=== PATIENT | male | born 1970 | race Caucasian/White ===

== ENCOUNTER 2018-12-06 16:33 | Emergency (ER) | payer SELFPAY ==
[2018-12-06 16:43] VITALS: BP 120/75; PULSE 75; TEMP 98; BMI 28.2
[2018-12-06] MEDS ORDERED: DIPHTH,PERTUSS(ACELL),TET 0.5 ML DISP.SYRIN IM ONE ×2 (17:29→18:00)
--- NOTE | 2018-12-06 18:02 | PDOC ---
History of Present Illness - General Chief Complaint: Injury Stated Complaint: LACERATION Time Seen by Provider: 12/06/18 16:44 History Source: Patient Exam Limitations: No Limitations - History of Present Illness Initial Comments: 12/06/18 18:06 HISTORY OF PRESENT ILLNESS: This is a 48-year-old male denies medical history presents emergency department for evaluation of right lower leg laceration sustained while at work today. Patient works as a day warehouse general laborer and when he walked passed some sheet-metal sustained a laceration to the lateral side of his right leg. Patient applied a dressing came to emergency department immediately. Patient is unsure of his last tetanus shot. No recent travel or sick contacts. PAST MEDICAL HISTORY: Denies past medical history SURGICAL HISTORY: Denies ALLERGIES: No known drug allergies REVIEW OF SYSTEMS General/Constitutional: Denies fever or chills. Denies weakness, weight change. HEENT: Denies change in vision. Denies ear pain or discharge. Denies sore throat. Cardiovascular: Denies chest pain or shortness of breath. Respiratory: Denies cough, wheezing, or hemoptysis. Gastrointestinal: Denies nausea, vomiting, diarrhea or constipation. Denies rectal bleeding. Genitourinary: Denies dysuria, frequency, or change in urination. Musculoskeletal: Denies joint or muscle swelling or pain. Denies neck or back pain. Skin and breasts: see HPI Neurologic: Denies headache, vertigo, loss of consciousness, or loss of sensation. Psychiatric: Denies depression or anxiety. Endocrine: Denies increased thirst. Denies abnormal weight change. Hematologic/Lymphatic: Denies anemia, easy bleeding, or history of blood clots. Allergic/Immunologic: Denies hives or skin allergy. Denies latex allergy. PHYSICAL EXAM General Appearance: Well-appearing, appropriately dressed. No apparent distress , no intoxication. Integumentary: 4cm linear superficial laceration to right lateral lower leg. Bleeding well controlled. Neurologic: mulcher operator II-XII intact. Fully oriented, alert. Appropriate mood/affect. Motor strength 5/5. No appreciable EOM palsy, facial droop or sensory deficit. Past History - Past Medical History Allergies/Adverse Reactions: Allergies Allergy/AdvReac Type Severity Reaction Status Date / Time No Known Allergies Allergy Verified 12/06/18 16:42 COPD: No - Suicide/Smoking/Psychosocial Hx Smoking History: Never smoked Information on smoking cessation initiated: No Hx Alcohol Use: No Drug/Substance Use Hx: No *Physical Exam - Vital Signs Last Vital Signs Temp Pulse Resp BP Pulse Ox 98 F 75 18 120/75 99 12/06/18 16:41 12/06/18 16:41 12/06/18 16:41 12/06/18 16:41 12/06/18 16:41 Procedures - Consent Consent obtained: Verbal, From Patient - Laceration/Wound Repair Right Lateral Calf Wound Length: 2.6 to 5.0 cm Wound Explored: clean Wound's Depth, Shape: superficial Irrigated w/ Saline: Yes Betadine Prep: Yes Anesthesia: 1% Lidocaine Amount of Anesthetic (ccs): 6 Wound Debrided: minimal Wound Repaired With: Sutures Suture Size/Type: 4:0, nylon Number of Sutures: 5 Layer Closure: No Sterile Dressing Applied: Yes Splint Applied: No Sling Applied: No Progress: 12/06/18 17:58 patient tolerated well Medical Decision Making - Medical Decision Making 12/06/18 18:09 A/P: 48-year-old male with laceration to right lateral lower leg Tetanus booster Laceration repair-see procedure note for details Discharge Portions of this note have been documented using voice recognition software. As a result, errors may occur in the director of corporate real estate process. Effort has been made to correct all grammatical and director of corporate real estate error, but some may have been missed. *DC/Admit/Observation/Transfer Diagnosis at time of Disposition: Laceration - Discharge Dispostion Disposition: HOME Condition at time of disposition: Stable Decision to Admit order: No - Referrals - Patient Instructions Additional Instructions: Keep wound clean and dry Avoid strenuous activity/exercise to create a hot or sweaty environment until sutures are removed Reapply bacitracin ointment 2 times a day until sutures are removed Return to emergency Department or private physician in 10-14 days for suture removal May use Tylenol or Motrin for pain relief Return immediately to emergency department for redness, swelling, pain, or signs of infection Mantenga la herida limpia y seca Evite la actividad/ejercicio extenuante para crear un ambiente caliente o sudoroso hasta que se retiren las suturas Vuelva a aplicar la pomada de bacitracina 2 veces al da hasta que se retiren las suturas Regrese al Departamento de emergencias o al mdico privado en - padilla para la remocin de sutura Puede usar Tylenol o Motrin para aliviar el dolor Regrese inmediatamente al departamento de emergencias por enrojecimiento, hinchazn, dolor o signos de infeccin - Post Discharge Activity
== END 2018-12-06 18:16 | disposition home or self-care (01) ==
LOC: JERFT 16:33
PROC: 3E0234Z Introduction of Serum, Toxoid and Vaccine into Muscle, Percutaneous Approach (ICD-10-PCS; principal; 2018-12-06)
PROC: 0HQKXZZ Repair Right Lower Leg Skin, External Approach (ICD-10-PCS; 2018-12-06)
DX: S81.811A Laceration without foreign body, right lower leg, initial encounter (principal); W26.8XXA Contact with other sharp object(s), not elsewhere classified, initial encounter; Y93.89 Activity, other specified; Y92.69 Other specified industrial and construction area as the place of occurrence of the external cause; Y99.0 Civilian activity done for income or pay
CPT/HCPCS: 90715; 99281-25